=== PATIENT | female | born 2000 | race African-American/Black ===

== ENCOUNTER 2018-12-26 23:30 | Emergency (ER) | payer OTHER ==
[2018-12-27] MEDS ORDERED: IBUPROFEN 600 MG TABLET PO ONE (03:15)
[2018-12-27 03:30] VITALS: BP 111/65
== END 2018-12-27 03:40 | disposition home or self-care (01) ==
LOC: EMS 23:30
DX: S90.32XA Contusion of left foot, initial encounter (principal); W20.8XXA Other cause of strike by thrown, projected or falling object, initial encounter; Y93.89 Activity, other specified; Y92.89 Other specified places as the place of occurrence of the external cause; Y99.8 Other external cause status

== ENCOUNTER 2019-01-30 13:52 | Emergency (ER) | payer OTHER ==
[~2019-01-30] VITALS: Ht 157.5 cm; Wt 54.5 kg
[2019-01-30] MEDS ORDERED: BIRTH CONTROL PO (14:01)
[2019-01-30] MEDS ORDERED: SODIUM CHLORIDE 0.9% 1,000 ML IV ONE (15:30)
[2019-01-30] MEDS ORDERED: ONDANSETRON HCL 4 MG/2 ML VIAL IVP ONE (15:30)
[2019-01-30] MEDS ORDERED: KETOROLAC TROMETHAMINE 30 MG/ML VIAL IVP ONE (15:30)
[2019-01-30] MEDS ORDERED: MAG HYDROX/AL HYDROX/SIMETH 30 ML SUSP UDCUP PO ONE (15:30)
[2019-01-30] MEDS ORDERED: FAMOTIDINE 10 MG/ML 2 ML VIAL IVP ONE (15:30)
[2019-01-30 15:41] LABS: BASOPHILS % (AUTO) 0.7 % (0.0-2.0); EOSINOPHILS % (AUTO) 1.3 % (1.0-6.0); HEMATOCRIT 39.7 % (36-46); HEMOGLOBIN 12.9 g/dL (12.0-16.0); LYMPHOCYTES # (AUTO) 1.4 K/uL (1.0-4.8); LYMPHOCYTES % (AUTO) 20.9 % (22.0-44.0); MEAN CORPUSCULAR HGB CONC 32.4 G/dL (31.0-37.0); MEAN CORPUSCULAR VOLUME 83 fL (80-100); MONOCYTES # (AUTO) 0.3 K/uL (0.1-1.0); MONOCYTES % (AUTO) 4.9 % (2.0-9.0); NEUTROPHILS # (AUTO) 4.7 K/uL (1.8-7.7); NEUTROPHILS % (AUTO) 72.2 % (40.0-70.0); PLATELET COUNT (AUTO) 267 K/uL (150-450); RED BLOOD CELL COUNT(AUTO) 4.76 MIL/uL (4.00-5.20); RED CELL DISTRIBUTION WIDTH 13.6 % (11.5-14.5)
[2019-01-30 15:54] LABS: ANION GAP 10 mmol/L (8-16); CALCIUM, TOTAL 9.2 mg/dL (8.8-10.5); CARBON DIOXIDE 25 mmol/L (22-29); CHLORIDE 102 mmol/L (98-107); CREATININE 0.98 mg/dL (0.60-1.30); GLOMERULAR FILTR. RATE CALC > 60 mL/min (>60); GLUCOSE,RANDOM 84 mg/dL (70-110); POTASSIUM 3.6 mmol/L (3.5-5.1); SODIUM SERUM 137 mmol/L (136-145); UREA NITROGEN, BLOOD 9 mg/dL (7-18)
[2019-01-30 16:05] LABS: ALANINE AMINOTRANSFERASE 13 U/L (12-78); ALBUMIN 3.7 g/dL (3.4-5.0); ALKALINE PHOSPHATASE 51 U/L (46-116); ASPARTATE AMINOTRANSFERASE 15 U/L (15-37); BILIRUBIN,TOTAL 0.8 mg/dL (0.1-1.0); HCG,QUANTITATIVE < 1 mIU/mL (0-6); LIPASE 196 U/L (73-393); TOTAL PROTEIN, SERUM 8.5 g/dL (6.4-8.2)
[2019-01-30 16:14] VITALS: BP 147/85
== END 2019-01-30 17:17 | disposition home or self-care (01) ==
LOC: EMS 13:53
DX: A08.4 Viral intestinal infection, unspecified (principal); R11.2 Nausea with vomiting, unspecified
CPT/HCPCS: 36415; 80053; 83690; 84702; 85025; 96361; 96374; 96375; 99285; J1885; J2405; J3490; J7030